=== PATIENT | female | born 1975 ===

== ENCOUNTER 2017-01-29 09:59 | Outpatient (CLI) | payer OTHER ==
--- NOTE | 2017-01-30 16:06 | Mammography Report ---
BILATERAL DIGITAL SCREENING MAMMOGRAM with CAD: 01/29/17 09:59:00 CLINICAL: Baseline screening FINDINGS: There are bilateral scattered areas of fibroglandular density.No mass, architectural distortion or suspicious calcifications. IMPRESSION: No mammographic evidence of malignancy. BI-RADS CATEGORY: 1 -- Negative RECOMMENDATION: Routine mammographic screening in one year. COMMENT: Patient follow-up letters are generated by our [employer] application.
== END 2017-01-29 10:00 | disposition home or self-care (01) ==
LOC: SPVWC 09:59
DX: Z12.31 Encounter for screening mammogram for malignant neoplasm of breast (principal)
CPT/HCPCS: 77067; G0202